=== PATIENT | male | born 1995 | race Caucasian/White ===

== ENCOUNTER 2020-11-08 14:00 | Emergency (ER) | payer OTHER ==
[~2020-11-08] VITALS: Ht 167.6 cm; Wt 63.5 kg
[2020-11-08 14:25] VITALS: BP 130/76
[2020-11-08] MEDS ORDERED: TETRACAINE HCL 0.5% OPTH(EYE) SOLN 4ML EACHEYE ONE (15:45)
[2020-11-08] MEDS ORDERED: FLUORESCEIN SOD OPTH TEST STRIP OP ONE (15:45)
[2020-11-08] MEDS ORDERED: OPHTHALMIC IRRIGATION SOLN 30ML OP ONE (15:45)
== END 2020-11-08 16:31 | disposition home or self-care (01) ==
LOC: ER 14:24
DX: T15.02XA Foreign body in cornea, left eye, initial encounter (principal); Z88.2 Allergy status to sulfonamides; W22.8XXA Striking against or struck by other objects, initial encounter; Y93.89 Activity, other specified; Y92.89 Other specified places as the place of occurrence of the external cause; Y99.8 Other external cause status
CPT/HCPCS: 65222

== ENCOUNTER 2020-11-08 20:12 | Emergency (ER) | payer OTHER ==
[~2020-11-08] VITALS: Ht 167.6 cm; Wt 63.5 kg
[2020-11-08] MEDS ORDERED: PROPARACAINE HCL 0.5% OPTH(EYE) SOL 15ML OP PRN (20:30)
[2020-11-08] MEDS ORDERED: TETRACAINE HCL 0.5% OPTH(EYE) SOLN 4ML EACHEYE ONE (21:15)
[2020-11-08 21:59] VITALS: BP 115/85
== END 2020-11-08 23:02 | disposition home or self-care (01) ==
LOC: ER 20:12
DX: S05.02XA Injury of conjunctiva and corneal abrasion without foreign body, left eye, initial encounter (principal); Z88.2 Allergy status to sulfonamides; X58.XXXA Exposure to other specified factors, initial encounter; Y93.89 Activity, other specified; Y92.89 Other specified places as the place of occurrence of the external cause; Y99.8 Other external cause status